=== PATIENT | female | born 1960 ===

== ENCOUNTER 2022-02-23 19:29 | Inpatient (IN) | payer MEDICARE ==
[2022-02-23] MEDS ORDERED: MAG HYDROX/AL HYDROX/SIMETH 30 ML CUP PO PRN (19:36)
[2022-02-23] MEDS ORDERED: LORazepam 1 MG TAB PO PRN (19:36)
[2022-02-23] MEDS ORDERED: MAGNESIUM HYDROXIDE 2,400 MG/10 ML CUP PO PRN (19:36)
[2022-02-23] MEDS ORDERED: HALOPERIDOL LACTATE 5 MG/ML 1 ML VIAL IM PRN (19:36)
[2022-02-23] MEDS ORDERED: LOPERAMIDE 2 MG CAP PO PRN (19:45)
[2022-02-23] MEDS ORDERED: CALCIUM CARBONATE 500 MG CHEWABLE PO PRN (19:45)
[2022-02-23] MEDS ORDERED: IPRATROPIUM-ALBUTEROL 3 ML NEB INHALATION PRN (19:45)
[2022-02-23] MEDS ORDERED: LORazepam 2 MG/ML INJ IM PRN (19:45)
[2022-02-23] MEDS ORDERED: cloNIDine HCL 0.1 MG TAB PO PRN (19:45)
[2022-02-23] MEDS ORDERED: haloperidoL 5 MG TAB PO PRN (19:45)
[2022-02-23] MEDS ORDERED: hydrOXYzine HCL 50 MG/ML 1 ML VIAL IM PRN (19:59)
[2022-02-23] MEDS ORDERED: hydrOXYzine pamoate 25 MG CAP PO PRN (19:59)
[2022-02-24] MEDS: methocarbamoL 750 MG TAB PO SCH ×3 (08:36→20:56)
[2022-02-24] MEDS: lamoTRIgine 100 MG TAB PO SCH ×3 (08:36→20:56)
[2022-02-24] MEDS: GABAPENTIN 100 MG CAP PO SCH ×4 (08:37→21:38)
[2022-02-24] MEDS: MAGNESIUM OXIDE 400 MG TAB PO SCH (08:56)
[2022-02-24] MEDS: ASPIRIN 81 MG PO SCH (08:56)
[2022-02-24] MEDS: NICOTINE 21MG/24HR PATCH TRANSDERM SCH (08:56)
[2022-02-24] MEDS: FERROUS SULFATE 325 MG TAB PO SCH (08:56)
[2022-02-24] MEDS: DULoxetine HCL 30 MG CAPSULE.DR PO SCH (08:56)
[2022-02-24 10:24] LABS: Basophils # (A) 0.1 k/uL (0-0.2); Basophils % (A) 1 %; Eosinophils # (A) 0.3 k/uL (0-0.7); Eosinophils % (A) 3 %; HCT 37.8 % (34.0-46.0); HGB 11.8 gm/dL (11.4-16.0); Lymphocytes # (A) 2.2 k/uL (1.0-4.8); Lymphocytes % (A) 30 %; MCH 32.2 pg (25.0-35.0); MCHC 31.1 g/dL (31.0-37.0); MCV 103.4 fL (80.0-100.0); Macrocytosis Slight; Mean Platelet Volume 7.6; Monocytes # (A) 0.4 k/uL (0-1.0); Monocytes % (A) 6 %; Neutrophils # (A) 4.3 k/uL (1.3-7.7); Neutrophils % (A) 58 %; Platelet Count 354 k/uL (150-450); RBC 3.65 m/uL (3.80-5.40); RDW 13.3 % (11.5-15.5); WBC 7.3 k/uL (3.8-10.6)
[2022-02-24 10:41] LABS: ALT 25 U/L (4-34); AST 28 U/L (14-36); African American GFR (CKD) 62 (>60 ml/min/1.73 sqM); Albumin 4.9 g/dL (3.5-5.0); Alkaline Phosphatase 54 U/L (38-126); Anion Gap 14 mmol/L; Bilirubin, Delta 0.2 mg/dL (0.0-0.2); Bilirubin,Unconjugated 0.1 mg/dL (0.0-1.1); Blood Urea Nitrogen 21 mg/dL (7-17); Calcium 10.2 mg/dL (8.4-10.2); Carbon Dioxide 24 mmol/L (22-30); Chloride 100 mmol/L (98-107); Glucose 150 mg/dL (74-99); Non-African American GFR(CKD) 54 (>60 ml/min/1.73 sqM); Sodium 138 mmol/L (137-145); Total Bilirubin 0.3 mg/dL (0.2-1.3); Total Protein 7.7 g/dL (6.3-8.2)
[2022-02-24] MEDS: ACETAMINOPHEN TAB 325 MG TAB PO PRN ×3 (11:34→21:37)
[2022-02-24] MEDS ORDERED: DULoxetine HCL 30 MG CAPSULE.DR PO SCH (12:30)
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
[2022-02-24 18:02] LABS: Chol/HDL Ratio 5.05 Ratio; LDL Cholesterol,Calculated 120.6 mg/dL (0.0-131.0)
[2022-02-24] MEDS: QUEtiapine 100 MG TAB PO SCH (20:56)
[2022-02-24] MEDS: ATORVASTATIN 20 MG TAB PO SCH (20:56)
[2022-02-24] MEDS ORDERED: QUEtiapine 25 MG TAB PO SCH (21:00)
[2022-02-25 06:45] VITALS: RESP 16
[2022-02-25] MEDS: ACETAMINOPHEN TAB 325 MG TAB PO PRN ×3 (07:47→23:48)
[2022-02-25] MEDS: lamoTRIgine 100 MG TAB PO SCH ×2 (08:55→20:50)
[2022-02-25] MEDS: methocarbamoL 750 MG TAB PO SCH ×2 (08:55→20:51)
[2022-02-25] MEDS: GABAPENTIN 100 MG CAP PO SCH ×3 (08:55→20:50)
[2022-02-25] MEDS: NICOTINE 21MG/24HR PATCH TRANSDERM SCH (08:55)
[2022-02-25] MEDS: MAGNESIUM OXIDE 400 MG TAB PO SCH (08:55)
[2022-02-25] MEDS: DULoxetine HCL 30 MG CAPSULE.DR PO SCH (08:55)
[2022-02-25] MEDS: ASPIRIN 81 MG PO SCH (08:55)
[2022-02-25] MEDS: NALTREXONE HCL 50 MG TAB PO SCH (08:55)
[2022-02-25] MEDS: FERROUS SULFATE 325 MG TAB PO SCH (08:56)
--- NOTE | 2022-02-25 11:49 | P.PN ---
Progress Note - Text Progress Note Date: 02/25/22 Interval History: Patient was seen attending group and was directable and agreeable to speak with technical publications writer in the office. Currently, the patient is not reporting any suicidal or homicidal ideation, intention, and/or plan. She is not reporting any auditory or visual hallucinations. She denies any paranoia or other delusions. The patient does express continued elevated anxiety as well as a general feeling of disappointment with how her life is currently. She does express feeling isolated, lonely, and without purpose. She is adherent with her medications and is not reporting any side effects at this time. Mental Status Exam: General Appearance: Patient appears to be stated age is alert, directable, and cooperative. Behavior: Patient is calmly seated without any agitated behavior. Speech: Patient's speech is fluent and nonpressured. Mood/Affect: Mood is improving mildly, affect is congruent and constricted. Appropriately tearful throughout interview. Suicidality/Homicidality: Patient denies having any suicidal or homicidal ideation intent or plan. Perceptions: Patient denies any visual hallucinations and denies any auditory hallucinations Though content/process: There is no evidence of any delusional thought content and thought process is linear and goal-directed. Memory and concentration: AOX3, grossly intact for the purposes of this session Judgment and insight: Improving mildly Vital Signs Temp 97.6 F 02/25/22 06:44 Pulse 97 02/25/22 06:44 Resp 16 02/25/22 06:44 BP 107/59 02/25/22 06:44 Pulse Ox 99 02/25/22 06:44 FiO2 Intake & Output 02/24/22 02/25/22 02/25/22 18:59 06:59 18:59 Weight 49.4 kg Laboratory Results - Last 24 Hours 02/24/22 02/24/22 10:01 10:[address] Glu mg/dL 114 Hemoglobin A1c 5.6 Triglycerides 275.00 H Cholesterol 219.00 H LDL Cholesterol, Calc 120.6 VLDL Cholesterol, Calc 55.00 H HDL Cholesterol 43.40 Cholesterol/HDL Ratio 5.05 Assessment Major depressive disorder, recurrent, severe, without psychotic features Alcohol use disorder Rule out PTSD Tobacco use disorder Plan: -Patient continues to meet criteria for inpatient psychiatric admission for symptom stabilization and safety. Patient has signed adult voluntary form and medication consent and was placed in patient's chart. -Medications: Discontinue Cymbalta as the patient has elevated BUN and creatinine. We will start Zoloft 50 mg by mouth at bedtime for depression/anxiety Continue Neurontin 100 mg by mouth 3 times a day from label use for anxiety and to address neuropathic pain Continue Lamictal 100 mg by mouth twice a day for mood stabilization Continue Seroquel 100 mg by mouth at bedtime for mood stabilization Continue naltrexone 50 mg by mouth daily for alcohol use disorder -When necessary Vistaril and Haldol for agitation/aggression. -NRT - nicotine patch -SW on board for discharge planning. Encouraged the patient to participate in milieu.
[2022-02-25] MEDS: QUEtiapine 100 MG TAB PO SCH (20:50)
[2022-02-25] MEDS: ATORVASTATIN 20 MG TAB PO SCH (20:50)
[2022-02-25] MEDS ORDERED: SERTRALINE 50 MG TAB PO SCH (21:00)
[2022-02-25] MEDS ORDERED: METHYL SALICYLATE/MENTHOL CREAM 5 OZ TOPICAL PRN (21:11)
--- NOTE | 2022-02-25 21:11 | P.MDCNMH ---
History of Present Illness H&P Date: 02/25/22 Chief Complaint: Osteoarthritis Patient is a 61-year-old female she is admitted to the hospital inpatient psychiatric facility for suicide ideation. Patient has medical history of all call use disorder depression, COPD. Patient seen and examined today. She denies any acute complaints of nausea vomiting fever or chills. She does have some osteoarthritis pain involving her hands bilateral. She denies any difficulty in breathing today. She uses albuterol when necessary Review of Systems All systems: negative Past Medical History History of Any Multi-Drug Resistant Organisms: MRSA Date of last positivie culture/infection: 02/04/22 MDRO Source:: right lower arm Smoking Status: Current every day smoker Past Alcohol Use History: Daily Past Drug Use History: None Reported Medications and Allergies Allergies Allergy/AdvReac Type Severity Reaction Status Date / Time No Known Allergies Allergy Verified 02/24/22 09:19 Physical Exam Osteopathic Statement: *. No significant issues noted on an osteopathic structural exam other than those noted in the History and Physical/Consult. Vitals: Vital Signs Temp Pulse Resp BP Pulse Ox 02/25/22 06:44 97.6 F 97 16 107/59 99 - Constitutional General appearance: cooperative, no acute distress - EENT Eyes: EOMI, PERRLA - Neck Neck: normal ROM - Respiratory Respiratory: bilateral: CTA - Cardiovascular Rhythm: regular Heart sounds: normal: S1, S2 - Gastrointestinal General gastrointestinal: normal bowel sounds, soft - Integumentary Integumentary: normal - Neurologic Neurologic: CNII-XII intact - Musculoskeletal Musculoskeletal: gait normal - Psychiatric Psychiatric: A&O x's 3 Cranial Nerve Examination - Cranial Nerves Cranial Nerve I- Olfactory: Intact Cranial Nerve II- Optic: Intact Cranial Nerve III- Oculomotor: Intact Cranial Nerve IV- Trochlear: Intact Cranial Nerve V- Trigeminal: Intact Cranial Nerve - Abducens: Intact Cranial Nerve VII- Facial: Intact Cranial Nerve VIII- Auditory: Intact Cranial Nerve IX- Glossopharyngeal: Intact Cranial Nerve X- Vagus: Intact Cranial Nerve XI- Accessory: Intact Cranial Nerve XII- Hypoglossal: Intact Results CBC & Chem 7: 02/24/22 10:01 02/24/22 10:01 Assessment and Plan (1) Osteoarthritis Current Visit: Yes Status: Acute Code(s): M19.90 - UNSPECIFIED OSTEOARTHRITIS, UNSPECIFIED SITE SNOMED Code(s): 292022886 Plan: Osteoarthritis -Patient has a significant joint deformity notice in her hands bilateral. She states that she has been seen and evaluated by her primary care physician in the past and ruled out RA -Continue with Tylenol for now for discomfort. -Monitor renal function if improved she may be resumed on anti-inflammatory medication such as Mobic Elevated creatinine -Patient's creatinine function elevated today. Possibly underlying CKD however baseline labs are unknown. Repeat BMP ordered. COPD -Continue with home inhaler treatments including albuterol when necessary -No evidence of acute exacerbation Major depressive disorder, alcohol use disorder, -Psychiatric management per psychiatric team
[2022-02-26 07:06] VITALS: BP 112/69; PULSE 100; TEMP 97.4
[2022-02-26] MEDS: ACETAMINOPHEN TAB 325 MG TAB PO PRN ×2 (07:41→13:46)
[2022-02-26 07:48] LABS: African American GFR (CKD) >90 (>60 ml/min/1.73 sqM); Anion Gap 10 mmol/L; Blood Urea Nitrogen 16 mg/dL (7-17); Calcium 9.9 mg/dL (8.4-10.2); Carbon Dioxide 24 mmol/L (22-30); Chloride 104 mmol/L (98-107); Glucose 98 mg/dL (74-99); Non-African American GFR(CKD) 79 (>60 ml/min/1.73 sqM); Potassium 5.4 mmol/L (3.5-5.1); Sodium 138 mmol/L (137-145)
[2022-02-26] MEDS: GABAPENTIN 100 MG CAP PO SCH (09:14)
[2022-02-26] MEDS: NICOTINE 21MG/24HR PATCH TRANSDERM SCH (09:14)
[2022-02-26] MEDS: NALTREXONE HCL 50 MG TAB PO SCH (09:14)
[2022-02-26] MEDS: ASPIRIN 81 MG PO SCH (09:15)
[2022-02-26] MEDS: MAGNESIUM OXIDE 400 MG TAB PO SCH (09:15)
[2022-02-26] MEDS: lamoTRIgine 100 MG TAB PO SCH (09:15)
[2022-02-26] MEDS: methocarbamoL 750 MG TAB PO SCH (09:15)
[2022-02-26] MEDS: FERROUS SULFATE 325 MG TAB PO SCH (09:15)
--- NOTE | 2022-02-26 14:05 | P.DS ---
Providers Date of admission: 02/24/22 08:15 Expected date of discharge: 02/26/22 Attending physician: Sung Coles MD Consults: 02/23/22 19:36 Consult Physician Routine Consulting Provider: Jamal Mao Consult Reason/Comments: Medical H&P Do you want consulting provider notified?: Yes, Notify in am Primary care physician: Stated None - Discharge Diagnosis(es) (1) Major depressive disorder, recurrent severe without psychotic features Current Visit: Yes Status: Acute (2) Alcohol use disorder Current Visit: Yes Status: Chronic Priority: Medium (3) Tobacco use disorder Current Visit: Yes Status: Chronic Priority: Medium Hospital Course: Admission HPI: Patient is a , on disability, 62-year-old female with significant history of alcohol use disorder and depression who presented to her hospital from [facility] for suicidal ideation. Patient presented to the hospital under petition and certification for suicidal ideation in the context of heavy alcohol use. The patient has been admitted to [facility] for an extended period of time and was displaying significant symptoms of delirium tremens. As she was medically managed and treated, the patient had episodes of agitation that required restraints. She was petitioned and certified and subsequently transferred to our psychiatric unit for suicidal ideation. Monitoring evaluation on the psychiatric unit, the patient does endorse suicidal ideation and worsening depression in the context of heavy alcohol use. She endorses significant symptoms of depression including low motivation, low mood, sadness, crying episodes, decreased appetite, and poor sleep. She does report suicidal ideation however is not reporting any specific plan or intention. She reports no prior attempts at suicide. The patient denies any significant history of bipolar disorder. She reports no history of impulsivity, grandiosity, or periods of excessive energy. The patient denies any significant history of auditory or visual hallucinations outside the context of delirium tremens. Substance abuse, the patient reports that she began drinking heavily approximately 6 years ago. She states that since then, the patient has been drinking approximately 10-12 alcoholic beverages per day. She has attended Alcoholics Anonymous twice. She reports staying in an inpatient facility for 12 days for dual diagnosis of alcohol use disorder and depression. She is currently open with outpatient therapy at [facility]. Hospital course: Upon admission to the unit patient was initially tearful, depressed, and endorsing suicidal ideation. Patient was however directable and agreeable to commence treatment. Patient got along well with other patients on the unit and followed unit protocol. Patient was compliant with the medications and denied any side effects throughout hospital course. Patient was started on a regimen of Cymbalta, Neurontin, Lamictal, Seroquel, and naltrexone. However due to the patient's elevated BUN/creatinine, the decision was made to transition her from Cymbalta to Zoloft.. Patient spoke of her stressors and engaged in therapy both group and individual. Patient was also seen by medical team for history and physical exam. Throughout the course of the hospitalization patient gradually improved with regards to her mood and her sleep sleep and became future oriented with improved insight and judgment. On the day of discharge patient denied any suicidal or homicidal ideations intent or plan denied any auditory or visual hallucinations. Patient endorsed wanting to live for her health. The patient denied any access to guns or weapons. Patient denied any paranoia and did not endorse any delusions. Patient does have a significant history of substance abuse however was counseled on abstaining from all substances including alcohol and marijuana. Patient was offered however declined inpatient substance-abuse rehab. Patient was also counseled on the medications and need for regular compliance and was encouraged to follow-up with their outpatient appointment for mental health and also for primary care. Prior to discharge a family meeting will be arranged by social work msw to answer any questions and ensure safety upon discharge. Mental status exam: General Appearance: Patient appears to be stated age is alert, pleasant, and cooperative. Patient is in no acute distress and has fair hygiene and grooming. Petite. Behavior: Patient is calmly seated without any agitated behavior. Speech: Patient's speech is fluent and nonpressured. Mood/Affect: Patient reports their mood is "much better", affect is congruent and euthymic to bright. Suicidality/Homicidality: Patient denies having any suicidal or homicidal ideation intent or plan. Perceptions: Patient denies any auditory or visual hallucinations. Though content/process: There is no evidence of any delusional thought content and thought process is linear and goal-directed. Patient is more future oriented. Memory and concentration: AOX3, grossly intact for the purposes of this session. Can spell "WORLD" backwards correctly. Judgment and insight: Improved with guarded prognosis Vital Signs Temp 97.4 F L 02/26/22 06:44 Pulse 100 02/26/22 06:44 Resp 16 02/26/22 06:44 BP 112/69 02/26/22 06:44 Pulse Ox 97 02/26/22 06:44 FiO2 Laboratory Results WBC 7.3 k/uL (3.8-10.6) 02/24/22 10:01 RBC 3.65 m/uL (3.80-5.40) L 02/24/22 10:01 Hgb 11.8 gm/dL (11.4-16.0) 02/24/22 10:01 Hct 37.8 % (34.0-46.0) 02/24/22 10:01 MCV 103.4 fL (80.0-100.0) H 02/24/22 10:01 MCH 32.2 pg (25.0-35.0) 02/24/22 10:01 MCHC 31.1 g/dL (31.0-37.0) 02/24/22 10:01 RDW 13.3 % (11.5-15.5) 02/24/22 10:01 Plt Count 354 k/uL (150-450) 02/24/22 10:01 MPV 7.6 02/24/22 10:01 Neutrophils % 58 % 02/24/22 10:01 Lymphocytes % 30 % 02/24/22 10:01 Monocytes % 6 % 02/24/22 10:01 Eosinophils % 3 % 02/24/22 10:01 Basophils % 1 % 02/24/22 10:01 Neutrophils # 4.3 k/uL (1.3-7.7) 02/24/22 10:01 Lymphocytes # 2.2 k/uL (1.0-4.8) 02/24/22 10:01 Monocytes # 0.4 k/uL (0-1.0) 02/24/22 10:01 Eosinophils # 0.3 k/uL (0-0.7) 02/24/22 10:01 Basophils # 0.1 k/uL (0-0.2) 02/24/22 10:01 Macrocytosis Slight 02/24/22 10:01 Sodium 138 mmol/L (137-145) 02/26/22 07:09 Potassium 5.4 mmol/L (3.5-5.1) H 02/26/22 07:09 Chloride 104 mmol/L (98-107) 02/26/22 07:09 Carbon Dioxide 24 mmol/L (22-30) 02/26/22 07:09 Anion Gap 10 mmol/L 02/26/22 07:09 BUN 16 mg/dL (7-17) 02/26/22 07:09 Creatinine 0.81 mg/dL (0.52-1.04) 02/26/22 07:09 Est GFR (CKD-EPI)AfAm >90 (>60 ml/min/1.73 sqM) 02/26/22 07:09 Est GFR (CKD-EPI)NonAf 79 (>60 ml/min/1.73 sqM) 02/26/22 07:09 Glucose 98 mg/dL (74-99) 02/26/22 07:[address] Glu mg/dL 114 02/24/22 10:01 Hemoglobin A1c 5.6 % (0.0-6.0) 02/24/22 10:01 Calcium 9.9 mg/dL (8.4-10.2) 02/26/22 07:09 Total Bilirubin 0.3 mg/dL (0.2-1.3) 02/24/22 10:01 Conjugated Bilirubin 0.0 mg/dL (0.0-0.3) 02/24/22 10:01 Unconjugated Bilirubin 0.1 mg/dL (0.0-1.1) 02/24/22 10:01 Delta Bilirubin 0.2 mg/dL (0.0-0.2) 02/24/22 10:01 AST 28 U/L (14-36) 02/24/22 10:01 ALT 25 U/L (4-34) 02/24/22 10:01 Alkaline Phosphatase 54 U/L (38-126) 02/24/22 10:01 Total Protein 7.7 g/dL (6.3-8.2) 02/24/22 10:01 Albumin 4.9 g/dL (3.5-5.0) 02/24/22 10:01 Triglycerides 275.00 mg/dL (0.00-149.00) H 02/24/22 10:01 Cholesterol 219.00 mg/dL (0.00-200.00) H 02/24/22 10:01 LDL Cholesterol, Calc 120.6 mg/dL (0.0-131.0) 02/24/22 10:01 VLDL Cholesterol, Calc 55.00 mg/dL (5.00-40.00) H 02/24/22 10:01 HDL Cholesterol 43.40 mg/dL (40.00-60.00) 02/24/22 10:01 Cholesterol/HDL Ratio 5.05 Ratio 02/24/22 10:01 TSH 1.220 mIU/L (0.465-4.680) 02/24/22 10:01 Allergies Allergy/AdvReac Type Severity Reaction Status Date / Time No Known Allergies Allergy Verified 02/24/22 09:19 Impression: Major depressive disorder, recurrent, severe, without psychotic features Alcohol use disorder Tobacco use Plan: -Continue with discharge today as patient has improved and stabilized psychiatrically and is not currently an imminent threat to her self and/or others. Patient will remain at chronically elevated risk for harm to self and/or others due to her heavy alcohol use. -Continue medications: Gabapentin 100 mg by mouth 3 times a day [address]. Place for anxiety and for neuropathic pain Lamictal 100 mg by mouth twice a day for mood stabilization Naltrexone 50 mg by mouth daily for alcohol cessation Zoloft 50 mg by mouth at bedtime for depression/anxiety Seroquel 100 mg by mouth at bedtime for mood stabilization. -Patient was counseled on the need for medication compliance and appropriate follow-up at mental health and also primary care for medical issues. Patient verbalized understanding and agreed. -Social work to arrange for and conduct family meeting to ensure safety upon discharge and answer any questions/concerns. Social work also to arrange for patients follow up appointments with [facility] for psychiatric care along with follow up with primary care provider. -Patient counseled on abstaining from recreational drugs and marijuana and alcohol. Was informed/educated on the adverse effects on their physical and mental health. Patient verbally agreed and understood. Patient was offered substance abuse treatment however declined at this time. -Patient was instructed to return to the hospital or seek immediate medical care if their psychiatric or medical symptoms do worsen or reoccur. -Psychoeducation and supportive therapy provided to patient. Risks and benefits of pharmacological treatment versus the risks and benefits of nontreatment weight and discussed. Informed consent discussion held. Common side effects of psychotropics discussed such as, but not limited to headache, GI disturbance, sexual dysfunction, movement disorders, sedation, and orthostatic hypotension. Life threatening and blackbox warnings of prescribed medications also discussed. Potential risks of operating a vehicle or heavy machinery discussed with patient at length. Advised on importance of compliance and a reliable and responsible manner. Patient advised to review FDA consumer labeling of all medications prior to taking. Patient verbalized understanding of potential risks, and agrees with current treatment plan. Patient advised to medically contact physician/emergency personnel if any acute changes in condition occur. Patient Condition at Discharge: Stable Plan - Discharge Summary New Discharge Prescriptions: New Aspirin 81 mg PO DAILY tab lamoTRIgine [LaMICtal] 100 mg PO BID 30 Days tab Gabapentin [Neurontin] 100 mg PO TID 30 Days #90 cap Sertraline [Zoloft] 50 mg PO HS 30 Days tab Nicotine 21Mg/24Hr Patch [Habitrol] 1 patch TRANSDERM DAILY 30 Days patch Ferrous Sulfate [Iron (65 MG Elemental)] 325 mg PO QAM tab Atorvastatin [Lipitor] 20 mg PO HS tab rOPINIRole HCL [Requip] 0.25 mg PO BID 30 Days tab Naltrexone HCl [Revia] 50 mg PO DAILY 30 Days tab QUEtiapine [SEROquel] 100 mg PO HS 30 Days tab Discharge Medication List Aspirin 81 mg PO DAILY tab 02/26/22 [Rx] Atorvastatin [Lipitor] 20 mg PO HS tab 02/26/22 [Rx] Ferrous Sulfate [Iron (65 MG Elemental)] 325 mg PO QAM tab 02/26/22 [Rx] Gabapentin [Neurontin] 100 mg PO TID 30 Days #90 cap 02/26/22 [Rx] Naltrexone HCl [Revia] 50 mg PO DAILY 30 Days tab 02/26/22 [Rx] Nicotine 21Mg/24Hr Patch [Habitrol] 1 patch TRANSDERM DAILY 30 Days patch 02/26/22 [Rx] QUEtiapine [SEROquel] 100 mg PO HS 30 Days tab 02/26/22 [Rx] Sertraline [Zoloft] 50 mg PO HS 30 Days tab 02/26/22 [Rx] lamoTRIgine [LaMICtal] 100 mg PO BID 30 Days tab 02/26/22 [Rx] rOPINIRole HCL [Requip] 0.25 mg PO BID 30 Days tab 02/26/22 [Rx] Follow up Appointment(s)/Referral(s): Psychiatry, [place] [Other] - 03/03/22 2:00 pm (Иван Sanz) [facility] - 1 Week (Follow up 1-2 days) Patient Instructions/Handouts: How to Stop Smoking (DC), Depression (DC) Activity/Diet/Wound Care/Special Instructions: Activity and diet as tolerated. Avoid the use of street drugs and alcohol. Take all medications as prescribed. When you are in need of refills on your medications please contact your medical provider and/or outpatient psychiatrist to have this done. Please go to scheduled outpatient appointment for aftercare treatment. If symptoms return or become worse, call the crisis line at and/or go to the nearest emergency room for evaluation Discharge Disposition: HOME SELF-CARE
== END 2022-02-26 15:20 | disposition home or self-care (01) | DRG 885 ==
LOC: 3MHU 02-24 08:15
PROVIDERS: ADMIT Psychiatry & Neurology Psychiatry; ATTEND Psychiatry & Neurology Psychiatry
DX: F33.2 Major depressive disorder, recurrent severe without psychotic features (principal); R45.851 Suicidal ideations; D75.89 Other specified diseases of blood and blood-forming organs; F10.10 Alcohol abuse, uncomplicated; F41.9 Anxiety disorder, unspecified; N18.9 Chronic kidney disease, unspecified; J44.9 Chronic obstructive pulmonary disease, unspecified; F17.210 Nicotine dependence, cigarettes, uncomplicated; Z79.899 Other long term (current) drug therapy; Z81.8 Family history of other mental and behavioral disorders; Z86.73 Personal history of transient ischemic attack (TIA), and cerebral infarction without residual deficits; Z71.41 Alcohol abuse counseling and surveillance of alcoholic; Z91.410 Personal history of adult physical and sexual abuse; Z86.14 Personal history of Methicillin resistant Staphylococcus aureus infection; Z63.5 Disruption of family by separation and divorce
CPT/HCPCS: 80048; 80053; 80061; 82248; 83036; 84443; 85025